=== PATIENT | male | born 1950 | race Caucasian/White ===

== ENCOUNTER 2019-07-16 17:05 | Emergency (ER) | payer OTHER ==
[~2019-07-16] VITALS: Ht 180.3 cm; Wt 86.2 kg
[2019-07-16 17:15] VITALS: BP 163/84
[2019-07-16] MEDS ORDERED: LIDOCAINE WITH 8.4% SOD BICARB 3 ML DISP.SYRIN. INJ ONE (17:30)
--- NOTE | 2019-07-16 18:22 | RAD ---
Exam: Right finger 3 views INDICATION: Fourth fingertip laceration TECHNIQUE: Frontal view of the hand with oblique and lateral views of the fourth finger Comparisons: None FINDINGS: Fracture of the fourth digit is noted. There is overlying soft tissue irregularity. No other fractures are seen. Joint spaces are well-maintained. IMPRESSION: Tuft fracture of the fourth digit with overlying soft tissue irregularity. Electronically signed by: Benjamin Gibbons MD (07/16/2019 6:19 PM) [facility] [place]
[2019-07-16] MEDS ORDERED: CEPH500T PO (19:52)
[2019-07-16] MEDS ORDERED: HYDR-3164 PO (19:52)
--- NOTE | 2019-07-16 19:53 | PHYS DOC ---
Past Medical History Past Medical History: No Pertinent History (JORDAN MELGAR APRN) Past Surgical History: Tonsillectomy (JORDAN MELGAR APRN) Alcohol Use: Occasionally Drug Use: None (JORDAN MELGAR APRN) Adult General Chief Complaint Chief Complaint: LACERATION/AVULSION HPI HPI Patient is a 68 year old male who presents with right ring finger injury, patient states his right ring finger got caught in a wood chip. He is right- handed. He states he had leather gloves on. (JORDAN MELGAR APRN) Review of Systems Review of Systems Constitutional: Denies fever or chills [] Integument: Reports right ring finger injury Neurologic: Denies headache, focal weakness or sensory changes [] All other systems were reviewed and found to be within normal limits, except as documented in this note. (JORDAN MELGAR APRN) Current Medications Current Medications Current Medications Medications (Trade) Dose Ordered Sig/Autumn Start Time Stop Time Status Last Admin Dose Admin Lidocaine HCl (Buffered Lidocaine 1%) 9 ml 1X ONCE 07/16/19 17:30 07/16/19 17:54 DC (SOTERO ADAM DO) Allergies Allergies Allergies Coded Allergies Type Severity Reaction Last Updated Verified No Known Drug Allergies 07/16/19 No (SOTERO ADAM DO) Physical Exam Physical Exam Constitutional: Well developed, well nourished, no acute distress, non-toxic appearance. [] Skin: Right ring finger with no obvious deformity, mild swelling noted on the distal end of the right ring finger with a laceration on the finger pad approximately 2 cm long, another laceration on the right ring finger tip approx. 1 cm. there is moderate subungual hematoma on the right ring finger. Full range of motion to the right ring finger. Adequate ulnar sensation to the right ring finger. +2 right radial pulse. Cap refill less than 2 seconds the right ring finger. Back: No tenderness, no CVA tenderness. [] Extremities: No tenderness, no cyanosis, no clubbing, ROM intact, no edema. [] Neurologic: Alert and oriented X 3, normal motor function, normal sensory function, no focal deficits noted. [] Psychologic: Affect normal, judgement normal, mood normal. [] (JORDAN MELGAR APRN) Current Patient Data Vital Signs Vital Signs Date Time Temp Pulse Resp B/P (MAP) Pulse Ox O2 Delivery O2 Flow Rate FiO2 07/16/19 17:15 98.2 83 16 163/84 (110) 98 Room Air 98.2 (SOTERO ADAM DO) EKG EKG [] (JORDAN MELGAR APRN) Radiology/Procedures Radiology/Procedures Laceration/Wound Repair Wound Location: Right ring finger Wound's Depth, Shape: Vertical Wound Length (cm): Right ring finger distal and finger pad rocks nightly 2 cm long laceration that was closed with 7 interrupted sutures using 4. 0 Vicryl. Right ring fingertip with another laceration approximately 1 cm long that was closed with 4 interrupted sutures using 4. 0 Vicryl. There was moderate subungual hematoma that was drained on the right ring finger with electrocautery. Wound was covered with nonstick dressing. Wound Explored: clean Irrigated w/ Saline (ccs): 1000 Betadine Prep?: Yes Anesthesia: 1% buffered lidocaine Volume Anesthetic (ccs): Approximately 7 PROCEDURE: FINGER(S) RIGHT Exam: Right finger 3 views INDICATION: Fourth fingertip laceration TECHNIQUE: Frontal view of the hand with oblique and lateral views of the fourth finger Comparisons: None FINDINGS: Fracture of the fourth digit is noted. There is overlying soft tissue irregularity. No other fractures are seen. Joint spaces are well-maintained. IMPRESSION: Tuft fracture of the fourth digit with overlying soft tissue irregularity. Electronically signed by: Benjamin Soliz MD (07/16/2019 6:19 PM) [facility] DICTATED and SIGNED BY: BENJAMIN SOLIZ MD DATE: 07/16/191818 (JORDAN MELGAR APRN) Course & Med Decision Making Course & Med Decision Making Pertinent Labs and Imaging studies reviewed. (See chart for details) This is a 68-year-old male patient who presents to the ED today with right ring finger injury, patient got the finger caught in a wound chopper. X-ray of the right ring finger was noted for-Tuft fracture of the fourth digit with overlying soft tissue irregularity. This is an open fracture. Patient refused IV antibiotics/IM antibiotics in the ED. He states he will follow-up with a plastic surgeon of his own and requested we closed the wound. Wound was closed as noted in procedures. Discharged with cephalexin and hydrocodone. Emphasized the importance of following up with a hand surgeon. (JORDAN MELGAR APRN) Dragon Disclaimer Dragon Disclaimer This electronic medical record was generated, in whole or in part, using a voice recognition dictation system. (JORDAN MELGAR APRN) Departure Departure Impression: Primary Impression: Open fracture of tuft of distal phalanx of finger Additional Impression: Subungual hematoma of finger of right hand Disposition: HOME, SELF-CARE Condition: STABLE Referrals: NO PCP (PCP) Please follow-up with the hand surgeon of your own Patient Instructions: Finger Fracture, [id number], Laceration Care, Adult, [id number] Additional Instructions: You have an open tuft fracture of the right ring finger. Please complete the prescribed antibiotics, contact in the hand surgeon of your own and follow-up as soon as you can Scripts Hydrocodone/Apap 5-325 (NORCO 5-325 TABLET) 1 Each Tablet 1 TAB PO Q6HRS, #25 TAB Prov: JORDAN MELGAR APRN 07/16/19 Cephalexin (CEPHALEXIN) 500 Mg Tablet 1 TAB PO QID, #40 TAB Prov: JORDAN MELGAR APRN 07/16/19 Attending Signature Attending Signature I have reviewed the PA/OPERATIONS MANAGEMENT TRAINEE's note and plan of care. I was available for consultation as needed during the patient's visit in the emergency department. I agree with the clinical impression, plan, and disposition. (SOTERO ADAM DO) Problem Qualifiers Additional Impression: Subungual hematoma of finger of right hand Encounter type: initial encounter Qualified Codes: S60.10XA - Contusion of unspecified finger with damage to nail, initial encounter JORDAN MELGAR APRN Jul 16, 2019 19:53 SOTERO ADAM DO Jul 16, 2019 20:18
== END 2019-07-16 20:10 | disposition home or self-care (01) ==
LOC: ER 17:05
DX: S62.634B Displaced fracture of distal phalanx of right ring finger, initial encounter for open fracture (principal); Z90.89 Acquired absence of other organs; W23.0XXA Caught, crushed, jammed, or pinched between moving objects, initial encounter; Y93.89 Activity, other specified; Y92.89 Other specified places as the place of occurrence of the external cause; Y99.8 Other external cause status
CPT/HCPCS: 11740; 12001; 12002; 73140; 99284

== ENCOUNTER → 2021-05-07 | Outpatient (CLI) | payer MEDICARE ==
[~2021-05-07] MED LIST: CEPH500T PO; GADOTERATE 7.5 MMOL/15ML VIAL. IVP ONE; HYDR-3164 PO
--- NOTE | 2021-05-08 10:01 | KCIC ---
EXAM: MRI ABDOMEN AND PELVIS WITH AND WITHOUT CONTRAST. HISTORY: Liver lesion, bladder mass. TECHNIQUE: MRI of the abdomen and pelvis was performed before and after the intravenous administratio n of 16 mL Clariscan. COMPARISON: 04/28/2021. FINDINGS: Liver: 2 T2 hyperintense lesions in hepatic segment 8 and 7 measure 16 mm and 13 mm, respectively. Th ey demonstrate progressive peripheral nodular enhancement consistent with benign hemangiomas. There i s no significant stenosis. Biliary tree: The gallbladder is unremarkable. The common duct is not dilated. There are no suspiciou s pancreatic parenchymal lesions. The pancreatic duct is not dilated. Pelvis: A mass along the right ureterovesical junction protrudes into the lumen and measures approxim ately 2.1 x 1.8 cm. It has a broader sessile component that spans 3.7 cm. Multiple additional nodules are noted along the bladder bilaterally and along the base. The ureterovesical junction mass obstructs the right ureter with mild right hydronephrosis and hydrou reter. There are no suspicious renal lesions. No upper tract urothelial masses are appreciated by thi s technique. The adrenal glands and spleen are unremarkable. A low T2 signal mass within the peripheral zone of the prostate laterally and posteriorly on the righ t measures 2.5 x 1.1 cm and demonstrates diffusion restriction. Another smaller hypointense focus wit hin the peripheral zone posterolaterally on the left measures 8 mm and also restricts diffusion. The prostate is mildly enlarged for patient age at 4.2 x 3.8 cm. No extracapsular extension is identified . The bladder masses are not clearly contiguous with the prostate lesions. There is grade 1 anterolisthesis at L4-5 resulting in moderate central canal stenosis. There is a deg enerative tear of the right anterosuperior acetabular labrum. There is some cartilage loss along the anterolateral ribs of both acetabula. Enhancing nodules are noted along the right hip joint capsule s uperolaterally, measuring up to 12 x 8 mm. Another smaller nodule more anteriorly measures 8 mm. IMPRESSION: 1. Multifocal urothelial masses bilaterally in the bladder measure up to 3.7 cm. One obstructs the ri ght ureterovesical junction with mild right hydronephrosis. Urothelial malignancy is favored over met astasis from prostate cancer. 2. PI-RADS 5 mass within the right prosthetic peripheral zone consistent with prostate carcinoma. Ano ther PI-RADS 4 lesion within the left posterior peripheral zone is consistent with a second focus. On going management is recommended. 3. 2 hepatic lesions are consistent with benign hemangiomas. No evidence of metastatic disease. Electronically signed by: Katarzyna Mcgill MD (05/08/2021 9:59 AM) [facility]
== END ==
LOC: KCIC MRI 14:20
PROVIDERS: ATTEND Internal Medicine
DX: C79.89 Secondary malignant neoplasm of other specified sites (principal); C61 Malignant neoplasm of prostate; K76.9 Liver disease, unspecified; N32.89 Other specified disorders of bladder; N13.30 Unspecified hydronephrosis; N13.4 Hydroureter; N40.0 Benign prostatic hyperplasia without lower urinary tract symptoms; M48.061 Spinal stenosis, lumbar region without neurogenic claudication; M43.16 Spondylolisthesis, lumbar region
CPT/HCPCS: 72197; 74183; 82565; A9575

== ENCOUNTER → 2021-07-25 | Outpatient (CLI) | payer MEDICARE ==
[~2021-07-25] MED LIST changes: -GADOTERATE 7.5 MMOL/15ML VIAL. IVP ONE; +IOHEXOL 300 MG/ML 100ML VIAL. IV ONE
--- NOTE | 2021-07-25 17:10 | KCIC ---
EXAM: CT OF THE CHEST WITH CONTRAST. HISTORY: Bladder cancer. TECHNIQUE: Computed tomography of the chest was performed after the intravenous administration of iod inated contrast. One or more of the following individualized dose reduction techniques were utilized for this examination: 1. Automated exposure control. 2. Adjustment of the mA and/or kV according to patient size. 3. Use of iterative reconstruction technique. COMPARISON: 04/28/2021. FINDINGS: Images of the upper abdomen reveal a 1.7 cm hypoattenuating lesion within hepatic segment 8 suggesting a cyst or hemangioma. There is a small hiatal hernia. There is a stent within the right r enal collecting system. Bone windows reveal no suspicious lesions. There are no pathologically enlarged mediastinal or axillary lymph nodes. Calcified mediastinal lymph nodes are likely secondary to old granulomatous disease. There is no pleural or pericardial effusion . The heart is not enlarged. Lung windows reveal no infiltrates or suspicious nodules. IMPRESSION: 1. No evidence of metastatic disease to the chest. 2. Small hiatal hernia. Electronically signed by: Katarzyna Mcgill MD (07/25/2021 5:07 PM) [id number]
== END ==
LOC: KCIC CT 10:12
PROVIDERS: ATTEND Urology
DX: C67.8 Malignant neoplasm of overlapping sites of bladder (principal); K44.9 Diaphragmatic hernia without obstruction or gangrene
CPT/HCPCS: 71260; Q9967

== ENCOUNTER → 2021-08-21 | Outpatient (CLI) | payer MEDICARE ==
[~2021-08-21] MED LIST changes: -IOHEXOL 300 MG/ML 100ML VIAL. IV ONE
[2021-08-21 15:41] LABS: BASO % 1 % (0-3); EOS # 0.2 x10^3/uL (0.0-0.7); EOS % 3 % (0-3); HEMATOCRIT 42.2 % (39.0-53.0); HEMOGLOBIN 14.7 g/dL (13.0-17.5); LYMPH # 1.7 x10^3/uL (1.0-4.8); LYMPH % 26 % (24-48); MEAN CORPUSCULAR HEMOGLOBIN 34 pg (25-35); MEAN CORPUSCULAR HGB CONC 35 g/dL (31-37); MEAN CORPUSCULAR VOLUME 97 fL (79-100); MONO # 0.6 x10^3/uL (0.0-1.1); MONO % 10 % (0-9); NEUT % 60 % (31-73); PLATELET COUNT 262 x10^3/uL (140-400); RED BLOOD COUNT 4.35 x10^6/uL (4.30-5.70); RED CELL DISTRIBUTION WIDTH 12.7 % (11.5-14.5); WHITE BLOOD COUNT 6.6 x10^3/uL (4.0-11.0)
[2021-08-21 16:21] LABS: CALCIUM 8.9 mg/dL (8.5-10.1); CREATININE 0.9 mg/dL (0.7-1.3); GFR 83.9; POTASSIUM 4.4 mmol/L (3.5-5.1)
[2021-08-21 16:27] LABS: ALBUMIN 4.1 g/dL (3.4-5.0); ALBUMIN/GLOBULIN RATIO 1.2 (1.0-1.7); TOTAL BILIRUBIN 0.5 mg/dL (0.2-1.0); TOTAL PROTEIN 7.5 g/dL (6.4-8.2)
== END ==
LOC: ONCLAB 15:31
PROVIDERS: ATTEND Internal Medicine Hematology & Oncology
DX: C67.8 Malignant neoplasm of overlapping sites of bladder (principal)
CPT/HCPCS: 36415; 80053; 85025